=== PATIENT | male | born 1945 | race Caucasian/White ===

== ENCOUNTER → 2019-07-16 | Outpatient (CLI) | payer MEDICARE, BC ==
--- NOTE | 2019-07-16 15:03 | RAD ---
EXAM: Supine AP view of the abdomen DATE: 07/16/2019 12:00 AM INDICATION: URETERAL CALCULUS COMPARISON: 07/09/2019 FINDINGS: No abnormal small or large bowel dilatation. Moderate colonic stool content. No abnormal soft tissue mass effect. A 1.2 cm calculus is seen at the lower pole the left kidney. In addition a 5 mm calcification projects over the interpolar region of the left kidney. The previously seen distal ureteral calculus is not convincingly seen. Small pelvic phlebolith is again seen. Evaluation for free intraperitoneal gas is limited on this supine exam. IMPRESSION: 1. The previously seen distal left ureter calculus is not definitively seen. However 2 left renal calculi are again noted. Electronically signed by: Robert Hammond MD (07/16/2019 3:00 PM) [id number]
== END | disposition home or self-care (01) ==
LOC: RAD 14:14
PROVIDERS: ATTEND Urology
DX: N20.2 Calculus of kidney with calculus of ureter (principal)
CPT/HCPCS: 74018